=== PATIENT | female | born 1960 | race Caucasian/White ===

== ENCOUNTER 2018-03-03 05:02 | Observation (INO) | payer BC ==
[2018-03-01 14:04] LABS: BASOPHILS % 0.3 % (0.0-1.0); EOSINOPHILS % 0.5 % (0.0-6.0); HEMATOCRIT 41.1 % (34.2-44.1); HEMOGLOBIN 13.5 g/dL (12.0-16.0); MEAN CORPUSCULAR HEMOGLOBIN 32.8 pg (28-32); MEAN CORPUSCULAR HGB CONC 32.8 g/dL (31-35); MEAN CORPUSCULAR VOLUME 99.8 fL (81-99); MONOCYTES # (AUTO) 0.3 (0.2-0.8); MONOCYTES % 4.6 % (4.4-11.3); NEUTROPHILS # (AUTO) 3.7 (2.1-6.9); NEUTROPHILS % 61.4 % (38.7-80.0); PLATELET COUNT 302 x10e3/uL (140-360); RED BLOOD COUNT 4.12 x10e6/uL (3.6-5.1); RED CELL DISTRIBUTION WIDTH 12.7 % (11.7-14.4)
[2018-03-01 14:25] LABS: ALANINE AMINOTRANSFERASE 23 IU/L (0-55); ALBUMIN 3.8 g/dL (3.5-5.0); ALBUMIN/GLOBULIN RATIO 1.3 (0.8-2.0); ALKALINE PHOSPHATASE 70 IU/L (40-150); ANION GAP 14.7 mmol/L (8-16); BLOOD UREA NITROGEN 13 mg/dL (7-26); BUN/CREATININE RATIO 19 (6-25); CALCIUM 9.8 mg/dL (8.4-10.2); CARBON DIOXIDE 26 mmol/L (22-29); CHLORIDE 105 mmol/L (98-107); CREATININE, SERUM 0.67 mg/dL (0.57-1.11); EST GLOMERULAR FILTRATION RATE > 60 ML/MIN (60-); GLUCOSE 121 mg/dL (74-118); POTASSIUM 3.7 mmol/L (3.5-5.1); SODIUM 142 mmol/L (136-145)
[~2018-03-03] VITALS: Ht 157.5 cm; Wt 80.7 kg
[~2018-03-03 05:02] MED LIST: CITALOPRAM HBR20 MG PO; DICYCLOMINE HCL10 MG PO; GABAPENTIN600 MG PO; LEVOTHYROXINE75 MCG PO; LORAZEPAM1 MG PO; METOPROLOL SUCC50 MG PO; OMEPRAZOLE40 MG PO; SENNA LAX8.6 MG PO; TYLENOL #4 PO
[2018-03-03] MEDS ORDERED: CEFOXITIN SOD 1 GM VIAL ONE (05:14)
[2018-03-03] MEDS ORDERED: BUPIVACAINE HCL 0.5% INJ 30 ML VIAL INJ ONE (06:46)
[2018-03-03] MEDS: DEXTROSE 5%/0.45% SOD CHL 1,000 ML IV SCH ×2 (07:59→18:03)
[2018-03-03] MEDS ORDERED: ACETAMINOPHEN 1000 MG/100 ML IV PRN (08:00)
[2018-03-03] MEDS ORDERED: KETOROLAC TROMETHAMINE 30 MG/ML VIAL IM PRN (08:00)
[2018-03-03] MEDS ORDERED: FENTANYL CITRATE/PF 100MCG/2 ML INJ ONE ×2 (08:24→14:41)
--- NOTE | 2018-03-03 08:51 | Operative Report ---
DATE OF PROCEDURE: March 03, 2018 PREOPERATIVE DIAGNOSIS: Colonic stricture. 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 PROCEDURES: 1. Diagnostic laparoscopy. 2. Laparoscopic lysis of adhesions with release of colonic stricture. PARTNER MANAGER: None. ANESTHESIA: General. INDICATIONS AND FINDINGS: Patient is a 57-year-old female who complains of pain with urgency with her bowel movements. Evaluation had revealed a strictured area with colonoscopy suggesting adhesions. At surgery, there were adhesions tethering the colon over the vaginal cuff and bladder related to previous surgery causing sharp angulation and narrowing of the colon in this area. Once the colon was free of any adhesions, the colon otherwise appeared normal. There were a few adhesions involving the small bowel, which were lysed, otherwise the small bowel appeared normal. There was no mass seen. The liver appeared normal. Upper abdomen appeared normal. TECHNIQUE: After adequate general endotracheal anesthesia with the patient in supine position, the abdomen was prepped and draped in sterile fashion with [place] solution. Skin in the umbilicus was infiltrated with 0.5% Marcaine. An incision was made at the umbilicus. Abdominal wall was elevated, and Veress needle was introduced. Pneumoperitoneum was then created. A 5-mm trocar and cannula were then passed through the umbilical wound. Laparoscopic camera was introduced. Initial laparoscopy revealed some adhesions, otherwise unremarkable. A 5-mm trocar and cannula were placed in the epigastrium and a 5-mm trocar and cannula placed suprapubically. These were placed under direct vision. The colon was examined. There were some adhesions involving the mid sigmoid colon. These were lysed. Otherwise, the colon was followed distally. The distal sigmoid colon was found to be tethered to dense adhesions over the vaginal cuff from previous surgery. This was causing sharp angulation as well as narrowing of the colon in this area. These adhesions were lysed. Care was taken not to injure the colon or the bladder, and once the adhesions were lysed, the colon was examined, otherwise appeared normal, the area of narrowing was gone as the adhesions were lysed. Colon was freed all the way down to the rectosigmoid junction. It was also anteriorly attached to the posterior wall of the vagina and these adhesions also were lysed freeing the colon completely. Care was taken not to injure the ureter during the dissection. Small bowel was then examined. The small bowel had a few adhesions. One adhesion tethering the pelvis was lysed. Other adhesions were not causing any significant problem. The right colon otherwise appeared normal. The peritoneal cavity was irrigated with saline. All fluid aspirated and inspected for hemostasis, which was seen to be adequate. Upper abdomen was examined. The liver appeared normal. Stomach appeared normal. The lower abdomen was irrigated once again. All fluid aspirated and inspected for hemostasis, which was seen to be adequate. Instruments and cannulas were removed. Pneumoperitoneum was evacuated. Wounds were then closed. The skin to all wounds closed with subcuticular sutures of 4-0 Vicryl. Dermabond and sterile dressing were applied to each wound. The patient tolerated the procedure well. Estimated blood loss was 20 mL. There were no complications. All counts were correct. Patient was taken to the recovery room in satisfactory condition. Job#: [id number]
[2018-03-03] MEDS ORDERED: MORPHINE SULFATE 2 MG/ML SYR ONE ×2 (08:54→09:17)
[2018-03-03] MEDS: GABAPENTIN 300 MG CAP PO SCH ×3 (09:00→21:00)
[2018-03-03] MEDS: PANTOPRAZOLE SOD 40 MG TABEC PO SCH (09:00)
[2018-03-03] MEDS: METOPROLOL SUCCINATE 50 MG TAB XL PO SCH ×2 (09:00→18:03)
[2018-03-03] MEDS ORDERED: LEVOTHYROXINE SODIUM 75 MCG TAB PO SCH (09:00)
[2018-03-03] MEDS ORDERED: NON-FORMULARY MEDICATION (Gabapentin 600 MG) PO SCH (09:00)
[2018-03-03 10:23] VITALS: BP 128/64
[2018-03-03 10:31] VITALS: BP 128/64
[2018-03-03 10:57] VITALS: BP 128/64
[2018-03-03] MEDS: DICYCLOMINE HCL 10 MG CAP PO SCH ×3 (11:47→22:16)
[2018-03-03] MEDS: HYDROMORPHONE 1MG/1ML INJ IV PRN (13:17)
[2018-03-03] MEDS: ONDANSETRON HCL INJ 2 MG/ML VIAL IV PRN (13:17)
[2018-03-03] MEDS ORDERED: LIDOCAINE HCL 2% LOCAL INJ 5 ML SDV VIAL INJ ONE (14:34)
[2018-03-03] MEDS ORDERED: PROPOFOL IV EMULSION 10 MG/ML 20 ML VIAL ONE (14:34)
[2018-03-03] MEDS ORDERED: DEXAMETHASONE SOD PHOS INJ 4 MG/ML VIAL ONE (14:34)
[2018-03-03] MEDS ORDERED: KETAMINE HCL INJ 50 MG/ML 10 ML VIAL ONE (14:41)
[2018-03-03] MEDS ORDERED: MIDAZOLAM HCL 2 MG/2 ML VIAL ONE (14:41)
[2018-03-03 15:20] VITALS: BP 118/61
[2018-03-03 20:00] VITALS: BP 133/75
[2018-03-03] MEDS ORDERED: LORAZEPAM 1 MG TAB PO SCH (21:00)
[2018-03-03] MEDS ORDERED: CITALOPRAM HYDROBROMIDE 20 MG TAB PO SCH (21:00)
[2018-03-04] VITALS: BP 109/68
[2018-03-04] MEDS: HYDROMORPHONE 1MG/1ML INJ IV PRN ×4 (01:32→18:15)
[2018-03-04] MEDS: ONDANSETRON HCL INJ 2 MG/ML VIAL IV PRN ×2 (01:33→06:49)
[2018-03-04] MEDS: DEXTROSE 5%/0.45% SOD CHL 1,000 ML IV SCH ×2 (03:42→15:27)
[2018-03-04 04:00] VITALS: BP 113/71
[2018-03-04 05:07] LABS: BASOPHILS % 0.2 % (0.0-1.0); HEMATOCRIT 35.7 % (34.2-44.1); HEMOGLOBIN 11.7 g/dL (12.0-16.0); LYMPHOCYTES # (AUTO) 1.5 (1.0-3.2); MEAN CORPUSCULAR HEMOGLOBIN 32.3 pg (28-32); MEAN CORPUSCULAR HGB CONC 32.8 g/dL (31-35); MEAN CORPUSCULAR VOLUME 98.6 fL (81-99); MONOCYTES # (AUTO) 0.5 (0.2-0.8); MONOCYTES % 6.9 % (4.4-11.3); NEUTROPHILS # (AUTO) 4.5 (2.1-6.9); NEUTROPHILS % 69.6 % (38.7-80.0); PLATELET COUNT 258 x10e3/uL (140-360); RED BLOOD COUNT 3.62 x10e6/uL (3.6-5.1); RED CELL DISTRIBUTION WIDTH 12.3 % (11.7-14.4)
[2018-03-04 05:34] LABS: ANION GAP 12.7 mmol/L (8-16); BLOOD UREA NITROGEN 6 mg/dL (7-26); BUN/CREATININE RATIO 9 (6-25); CARBON DIOXIDE 25 mmol/L (22-29); CHLORIDE 103 mmol/L (98-107); CREATININE, SERUM 0.64 mg/dL (0.57-1.11); EST GLOMERULAR FILTRATION RATE > 60 ML/MIN (60-); GLUCOSE 147 mg/dL (74-118); POTASSIUM 3.7 mmol/L (3.5-5.1); SODIUM 137 mmol/L (136-145)
[2018-03-04] MEDS ORDERED: LEVOTHYROXINE SODIUM 125 MCG TAB PO SCH (06:00)
[2018-03-04 07:24] VITALS: BP 120/58
[2018-03-04] MEDS: HYDROCODONE/APAP 5MG-325MG TAB PO PRN ×2 (07:45→15:27)
[2018-03-04] MEDS: DICYCLOMINE HCL 10 MG CAP PO SCH ×3 (07:45→16:53)
[2018-03-04] MEDS: PANTOPRAZOLE SOD 40 MG TABEC PO SCH (09:26)
[2018-03-04] MEDS: GABAPENTIN 300 MG CAP PO SCH ×2 (09:26→15:27)
[2018-03-04] MEDS: METOPROLOL SUCCINATE 50 MG TAB XL PO SCH ×2 (09:26→16:54)
[2018-03-04 11:13] VITALS: BP 115/58
[2018-03-04 15:39] VITALS: BP 128/68
== END 2018-03-04 19:42 | disposition home or self-care (01) ==
LOC: OR 05:02 → PACU V 08:04 → IMCU 09:49
PROVIDERS: ADMIT Surgery; ATTEND Surgery
DX: K56.51 Intestinal adhesions [bands], with partial obstruction (principal); Z01.810 Encounter for preprocedural cardiovascular examination; Z01.812 Encounter for preprocedural laboratory examination; Z01.811 Encounter for preprocedural respiratory examination; Z86.73 Personal history of transient ischemic attack (TIA), and cerebral infarction without residual deficits; Z82.3 Family history of stroke; Z82.49 Family history of ischemic heart disease and other diseases of the circulatory system; J45.909 Unspecified asthma, uncomplicated; K21.9 Gastro-esophageal reflux disease without esophagitis; E03.9 Hypothyroidism, unspecified
CPT/HCPCS: 36415 ×2; 44180; 80048; 80053; 85025 ×2; 86850; 86900; 93005; G0378 ×2; J0694; J1100; J1170 ×2; J1885; J2001; J2250; J2270; J2405 ×2; S0164 ×2